=== PATIENT | male | born 1940 | race Caucasian/White ===

== ENCOUNTER 2022-09-14 08:26 | Outpatient (RCR) | payer OTHER | END 2022-09-28 | disposition home or self-care (01) | LOC: ONC 08:26 | PROVIDERS: ATTEND Radiology Radiation Oncology | DX: C61 Malignant neoplasm of prostate (principal); E78.5 Hyperlipidemia, unspecified | CPT/HCPCS: 99205 ==

== ENCOUNTER 2022-09-30 05:28 | Outpatient (CLI) | payer OTHER ==
[~2022-09-30] VITALS: Ht 177.8 cm; Wt 86.4 kg
[2022-09-30] MEDS ORDERED: PSYL0.5238 PO (17:09)
== END 2022-09-30 17:33 | disposition home or self-care (01) ==
LOC: PREOP 05:28
PROVIDERS: ATTEND Radiology Radiation Oncology
DX: Z01.818 Encounter for other preprocedural examination (principal)

== ENCOUNTER 2022-10-07 06:21 | Day surgery (SDC) | payer OTHER ==
[2022-10-07] VITALS (12 sets, daily range): BP systolic 64–136; BP diastolic 39–70
[~2022-10-07] VITALS: Ht 177.8 cm; Wt 86.4 kg
[~2022-10-07 06:21] MED LIST: PSYL0.5238 PO
--- NOTE | 2022-10-07 07:16 | Progress Note-Pre Operative ---
Pre-Operative Progress Note Date of Available H&P: Sep 14, 2022 Date H&P Reviewed: Oct 07, 2022 Time H&P Reviewed: 07:15 History & Physical: H&P Reviewed, Patient Examed, No changes noted Pre-Operative Diagnosis: Prostate cancer cT1c, PSA 10.94, Dony 8 (4+4) JESSICA LIANG MD Oct 07, 2022 07:16
--- NOTE | 2022-10-07 07:19 | Discharge Inst-Simple/Standard ---
Discharge Inst-Standard Reconcile Patient Problems Problems Reviewed?: Yes Discharge Medications New, Converted or Re-Newed RX: Other (Patient has antibiotics and instructions at home.) Patient Instructions/Follow Up Plan of Care/Instructions/FU: Treatment planning PSMA/CT scan in Nuclear Medicine on 10/22/22. Check in at hospital registration 9:00 a.m. Activity as Tolerated: Yes Discharge Diet: No Restrictions JESSICA LIANG MD Oct 07, 2022 07:18
[2022-10-07] MEDS: LACTATED RINGERS 1,000 ML IV PRN ×2 (07:20→09:02)
[2022-10-07] MEDS ORDERED: fentaNYL INJECTION 100 MCG/2 ML VIAL ONE (08:08)
[2022-10-07] MEDS ORDERED: ONDANSETRON 4 MG/2 ML (SDV) Z0FRAN ONE (08:45)
[2022-10-07] MEDS ORDERED: dexAMETHasone INJ 10 MG/ML 1 ML VIAL ONE (08:45)
[2022-10-07] MEDS ORDERED: proPOfol 200 MG/20 ML (DIPRIVAN) VIAL IV ONE (08:45)
[2022-10-07] MEDS ORDERED: LIDOCAINE PF 2% 5 ML VIAL ONE (08:45)
[2022-10-07] MEDS ORDERED: SEVOFLURANE (ULTANE) 15 ML INHAL SOLN ONE (08:49)
[2022-10-07] MEDS ORDERED: ONDANSETRON 4 MG/2 ML (SDV) Z0FRAN IVP PRN (09:15)
[2022-10-07] MEDS ORDERED: fentaNYL INJECTION 100 MCG/2 ML VIAL IVP ONE (09:15)
--- NOTE | 2022-10-07 09:15 | Anesthesia-General Post-Op ---
General Patient Condition Mental Status/LOC: Same as Preop Cardiovascular: Satisfactory Nausea/Vomiting: Absent Respiratory: Satisfactory Pain: Controlled Complications: Absent Post Op Complications Complications None Follow Up Care/Instructions Patient Instructions None needed. Anesthesia/Patient Condition Patient Condition Patient is doing well, no complaints, stable vital signs, no apparent adverse anesthesia problems. No complications reported per nursing. HONEY CURTIS CRNA Oct 07, 2022 09:15
--- NOTE | 2022-10-07 10:00 | Progress Note-Post Operative ---
Post-Operative Progess Note Surgeon (s)/Blasting [employer]er (s) Surgeon JESSICA LIANG MD Blasting [employer]er: N//A Pre-Operative Diagnosis Prostate cancer cT1c, PSA 10.94, Dony 8 (4+4) Post-Operative Diagnosis Same as pre-op Procedure & Operative Findings Date of Procedure 10/07/22 Procedure Performed/Findings (1) Placement of fiducial gold seed markers x 3 into prostate (2) Injection of biodegradable hydrogel prostate-rectal spacer utilizing the [employer] system Anesthesia Type General Estimated Blood Loss Estimated blood loss (mL): None Specimens/Packing Specimens Removed None Packing: None JESSICA LIANG MD Oct 07, 2022 10:00
== END 2022-10-07 10:40 ==
LOC: SDC 06:21
PROVIDERS: ATTEND Radiology Radiation Oncology
DX: C61 Malignant neoplasm of prostate (principal); J43.9 Emphysema, unspecified; G47.33 Obstructive sleep apnea (adult) (pediatric); Z99.81 Dependence on supplemental oxygen; Z87.891 Personal history of nicotine dependence
CPT/HCPCS: 87081

== ENCOUNTER → 2022-10-22 | Outpatient (CLI) | payer OTHER ==
[~2022-10-22] MED LIST changes: +CATHETER FLUSH 10 ML SYR IVP PRN
--- NOTE | 2022-10-22 16:01 | Diagnostic Imaging Report ---
INDICATION: Initial staging, prostate carcinoma. The patient was given 9.3 mCi F-18 PYLARIFY intravenously in right antecubital location and PET imaging was performed from the top of the skull to mid thighs. Noncontrast CT was also performed for attenuation correction and anatomic correlation. COMPARISON: No prior PET/CT studies are available for comparison. Physiologic activity within the lacrimal and salivary glands is noted. There is physiologic activity in the liver and spleen as well as the kidneys and gastrointestinal tract. Soft tissues of the neck are unremarkable. No abnormal activity within the mediastinum or kd is seen. No pulmonary parenchymal activity is identified. No abnormal activity within abdominal or pelvic or pelvic lymph nodes is identified. There is uptake along the periphery of the left lobe of the prostate which may represent patient's known malignancy. There appear to be some fiducial markers within the prostate gland. No other abnormal uptake is identified. IMPRESSION: There is abnormal uptake involving the periphery of the left aspect of the prostate gland. No other suspicious areas of uptake are identified. Dictated by: Dictated on workstation # [id number]
== END ==
LOC: RAD 10:15
PROVIDERS: ATTEND Radiology Radiation Oncology
DX: C61 Malignant neoplasm of prostate (principal)

== ENCOUNTER → 2022-10-29 | Outpatient (RCR) | payer OTHER ==
[~2022-10-29] MED LIST changes: -CATHETER FLUSH 10 ML SYR IVP PRN
== END | disposition home or self-care (01) ==
LOC: ONC 10-22 12:07
PROVIDERS: ATTEND Radiology Radiation Oncology
DX: Z51.0 Encounter for antineoplastic radiation therapy (principal); C61 Malignant neoplasm of prostate; E78.5 Hyperlipidemia, unspecified
CPT/HCPCS: 77300; 77301; 77334; 77338

== ENCOUNTER 2022-11-27 08:51 | Outpatient (RCR) | payer OTHER | END 2022-11-28 | disposition home or self-care (01) | LOC: ONC 08:51 | PROVIDERS: ATTEND Radiology Radiation Oncology | DX: Z51.0 Encounter for antineoplastic radiation therapy (principal); C61 Malignant neoplasm of prostate; E78.5 Hyperlipidemia, unspecified | CPT/HCPCS: 77336; 77385 ==

== ENCOUNTER 2022-12-11 08:51 | Outpatient (RCR) | payer OTHER | END 2022-12-29 | disposition home or self-care (01) | LOC: ONC 08:51 | PROVIDERS: ATTEND Radiology Radiation Oncology | DX: Z51.0 Encounter for antineoplastic radiation therapy (principal); C61 Malignant neoplasm of prostate; E78.5 Hyperlipidemia, unspecified | CPT/HCPCS: 77336; 77385 ==

== ENCOUNTER 2023-01-15 07:52 | Outpatient (RCR) | payer OTHER | END 2023-01-28 | disposition home or self-care (01) | LOC: ONC 07:52 | PROVIDERS: ATTEND Radiology Radiation Oncology | DX: C61 Malignant neoplasm of prostate (principal); E78.5 Hyperlipidemia, unspecified | CPT/HCPCS: 36415; 84153; 99213 ==